=== PATIENT | male | born 1940 | race Caucasian/White ===

== ENCOUNTER → 2016-08-21 19:35 | Outpatient (CLI) | payer MEDICARE ==
[2014-03-14 12:46] VITALS: BMI 28.5
[~2016-08-21 19:35] MED LIST: ASPIRIN 81 MG E81 MG PO; ASPIRIN325 MG PO; BACTRIM DS TABL1 TAB PO; BETAPACE 80 MG80 MG PO; COUMADIN5 MG PO; ELIQUIS5 MG PO; HUMALOG 30100 UNITS/ SQ; K-DUR20 MEQ PO; LASIX40 MG PO; NORCO 5/325 TAB1 TA1 PO; ONDANSETRON4 MG/2 M3 IV; PERCOCET 5/3251 TA1 PO; POVIDONE-IODINE30 GM TP; PRADAXA150 MG PO; PRILOSEC10 MG PO; PROTONIX40 MG PO; REGLAN10 MG IV; SALINE FLUSH10 ML IJ; SENOKOT-S TABLE1 TAB PO; VANCOMYCIN1 GM/2501 IV
== END | disposition home or self-care (01) ==
LOC: D.LABREF 19:35
DX: R68.82 Decreased libido (principal)